=== PATIENT | female | born 1985 | race Caucasian/White ===

== ENCOUNTER 2017-03-12 11:07 | Emergency (ER) | payer OTHER ==
[~2017-03-12] VITALS: Ht 154.9 cm; Wt 68.2 kg
[~2017-03-12 11:07] MED LIST: ALBU8.5H4 IH; DXM4T PO; Hydrocodone/Acetaminophen PO; IBUP-1827 PO; Ibuprofen PO; PREN1TAB73 PO
[2017-03-12 11:10] VITALS: BP 122/78; PULSE 83; RESP 16; O2SAT 100
--- NOTE | 2017-03-12 11:16 | ED.REPORT ---
HPI-Abd Pain F Under 40 Date of Service Mar 12, 2017 ED Provider: Baron Jin MD A 31 year old male with a history of tubal ligation, asthma and GERD presents to the ED complaining of abdominal pain. This began suddenly last night and has persisted since. The pain is located in the LLQ radiating to her back. This has been accompanied by nausea and vomiting x1 this morning, though the pt denies fever, dysuria, vaginal bleeding, vaginal discharge or diarrhea. The pt denies any history of kidney stones. She experienced similar symptoms five years ago with an ovarian cyst. Nursing Notes Stated Complaint: ABDOMINAL PAIN/ BLURRED VISION Chief Complaint: Female Abdominal Pain Nursing Notes Reviewed: Yes Allergies: Coded Allergies: Penicillins (Verified Allergy, Unknown, 03/12/17) Scheduled Dexamethasone (Dexamethasone) 4 Mg Tablet 4 MG PO BID Vit/Iron Fumarate/FA ( Vitamin Tablet) 1 Each Tablet 1 EACH PO DAILY Scheduled PRN ([Ibuprofen]) 600 MG TABLET 600 MG PO Q6H PRN PRN For Mild Pain ([Hydrocodone/Acetaminophen]) 1 TAB TABLET 1-2 TAB PO Q4H PRN PRN For Pain Albuterol HFA (Albuterol HFA) 8.5 Gm Hfa.aer.ad 1 PUFF IH Q4 PRN PRN For Shortness of Breath Hydrocodone-Acetaminophen 5-325 mg (Hydrocodone-Acetaminophen 5-325 mg) 1 Each Tablet 1 TABLET PO Q4H PRN PRN For Pain Ibuprofen (Ibuprofen) 600 Mg Tablet 600 MG PO QID PRN PRN For Pain General Time Seen by MD: 11:13 Chief Complaint Abdominal pain Hx Obtained From: Patient Arrived By: Walk-in Sudden in Onset?: Yes Onset Occurred: 1 day ago Symptom Duration: Since onset Recent Healthcare: No recent doctor visit, No recent hospitalization Similar Sx Previous: No Past Medical History Past Medical History scoliosis Reports: Asthma, GERD Past Surgical History pectus excavatum Reports: Tubal ligation Smoking History Former Smoker Social History Other Social History: Good social support, , Lives with children, Local resident Ambulatory Status Independent Review of Systems Constitutional: Denies: Fever Respiratory: Denies: Non-productive cough, Shortness of breath Cardiovascular: Denies: Chest pain GI: Reports: Abdominal pain, Nausea, Vomiting, Denies: Diarrhea Female: Denies: Dysuria Musculoskeletal: Reports: Back pain, Denies: Neck pain Complete sys rev & neg: except as marked. Skin: Denies Rash Physical Exam Initial Vital Signs Vital Signs (First) Date Time Temp Pulse Resp B/P Pulse Ox O2 Delivery O2 Flow Rate FiO2 03/12/17 11:10 36.7 83 16 122/78 100 Room Air Initial VS: Reviewed General/Constitutional: Awake, Alert Respiratory / Chest: Atraumatic, Breath sounds NL, Breath sounds = bilat, No respiratory distress Cardiovascular: Heart rate NL, Regular rhythm, Heart sounds NL Abdomen: Atraumatic, Soft LLQ tenderness Back: Atraumatic, Full range of motion, No CVA tenderness Head / Eyes: Atraumatic, Normocephalic, PERRL, EOMI ENT: Atraumatic, Airway patent, Mucous membranes moist Skin: Atraumatic, Color NL, No rash, Warm, Dry Female Genitourinary: Overhead Foreman present, Atraumatic, No cervical motion tend mild left adnexal tenderness small amount of white discharge Neurologic: Oriented X3, Speech NL, No motor deficits, No sensory deficits Neck: Atraumatic, Supple, Full range of motion Upper Extremity / MS: Atraumatic, Full range of motion Lower Extremity / Pelvis / MS: Atraumatic, Full range of motion Psychiatric: Affect NL, Mood NL Interpretation & Diagnostics Lab Results Interpretation Result Diagram: 03/12/17 1125 03/12/17 1125 Test 03/12/17 11:25 03/12/17 12:45 White Blood Count 8.5th/mm3 (3.8-10.1) Red Blood Count 5.23mil/mm3 (3.90-5.20) Hemoglobin 15.4g/dL (12.0-15.6) Hematocrit 44.0% (35.0-46.0) Mean Corpuscular Volume 84.1fL (81-100) Mean Corpuscular Hemoglobin 29.4pg (27.0-35.0) Mean Corpuscular Hemoglobin Concent 35.0% (32.0-37.0) Red Cell Distribution Width 12.6% (12.3-15.4) Platelet Count 320bil/L (150-400) Neutrophils (%) (Auto) 58.1% (40-74) Lymphocytes (%) (Auto) 30.1% (14-46) Monocytes (%) (Auto) 7.5% (4-12) Eosinophils (%) (Auto) 3.3% (0-5) Basophils (%) (Auto) 0.6% (0-3) Sodium Level 136mEq/L (134-144) Potassium Level 4.4mEq/L (3.5-5.2) Chloride Level 101mEq/L (97-108) Carbon Dioxide Level 19mmol/L (18-29) Blood Urea Nitrogen 8mg/dL (6-20) Creatinine 0.75mg/dL (0.57-1.00) Estimat Glomerular Filtration Rate 130mL/min (>59) Glucose Level 90mg/dL (60-99) Calcium Level 9.2mg/dL (8.5-10.1) Magnesium Level 2.0mg/dL (1.6-2.6) Total Bilirubin 0.4mg/dL (0.0-1.2) Aspartate Amino Transf (AST/SGOT) 27U/L (0-50) Alanine Aminotransferase (ALT/SGPT) 15U/L (0-32) Alkaline Phosphatase 81U/L (25-150) Total Protein 7.5g/dL (6.4-8.4) Albumin 4.2g/dL (3.4-5.0) Lipase 14U/L (13-60) Urine Color Dark yellow (YELLOW) Urine Appearance Hazy (CLEAR,HAZY) Urine pH 8.0 (5.0-8.0) Urine Specific [place] 1.038 (1.003-1.035) Urine Protein 30mg/dL (NEG,TRACE) Urine Glucose (UA) Negativemg/dL (NEGATIVE) Urine Ketones Negativemg/dL (NEGATIVE) Urine Occult Blood Negative (NEGATIVE) Urine Nitrite Negative (NEGATIVE) Urine Bilirubin Negative (NEGATIVE) Urine Urobilinogen Normalmg/dL (NORMAL) Urine Leukocyte Esterase Negative (NEGATIVE) Urine RBC 0-2/hpf (0-2) Urine WBC 0-5/hpf (0-5) Urine Epithelial Cells Many/hpf (NONE-MOD) Urine Crystals None seen (NONE SEEN) Urine Bacteria Few/hpf (NONE-FEW) Urine Hyaline Casts None/lpf (NONE) Urine Granular Casts None seen (NONE SEEN) Urine Waxy Casts None seen (NONE SEEN) Urine Red Blood Cell Casts None seen (NONE SEEN) Urine White Blood Cell Casts None seen (NONE SEEN) Urine Mucus None seen (None Seen) Urine Trichomonas None seen (NONE SEEN) Urine Yeast None (NONE SEEN) Urinalysis Comment None Urine Culture Reflexed Not indicated CT Abd / Pelvis Interpretation IMPRESSION: 1. No acute process. 2. Normal appendix. Dictated by: Adelina Minor M.D. on 03/12/2017 at 13:27 Approved by: Adelina Minor M.D. on 03/12/2017 at 13:29 Interpretation / Wet Read by: Interpret - Radiologist Re-Eval/Medical Decision Med Decision/Clinical Course Med Decision/Clinical Course: 31-year-old female history of ovarian cysts and tubal ligation presenting with left lower quadrant pain since last night. On exam mild left lower quadrant tenderness and left adnexal tenderness. She has mild white discharge. Her labs are unremarkable. Her vital signs are stable. CT scan shows no acute pathology. She is not . There is no evidence of UTI. Possible ovarian cyst. She does not desire . Her pain resolved and her time in the ER. Her vaginal discharge was sent for wet mount and GC chlamydia. She will be discharged home with follow-up with her primary doctor tomorrow. Return precautions given. Source of Hx: Old records Re-Evaluation/Progress #1: Time of Eval: 12:51 Re-Evaluation/Progress Note: Pt rechecked, who is feeling slightly better after receiving medications. The plan for further treatment is discussed. Re-Evaluation/Progress #2: Time of Eval: 14:47 Patient Status: Condition improved Re-Evaluation/Progress Note: Pt rechecked, who is comfortable. The diagnosis and plan for discharge are discussed. The pt understands and agrees with the plan. All questions are addressed at this time. Counseled Regarding: Diagnosis, Lab results, Need for follow-up, When/why to return to ED Discharge & Departure Primary Impression: Abdominal pain Abdominal location: unspecified location Qualified Code: R10.9 - Unspecified abdominal pain Additional Impression: Ovarian cyst Laterality: unspecified laterality Qualified Code: N83.209 - Unspecified ovarian cyst, unspecified side Disposition: Home Discharge Condition All VS Reviewed: Yes Condition: Stable Patient Instructions: Acute Abdominal Pain (ED), Ovarian Cyst (ED) Additional Instructions: Thank you for entrusting us with your care. Your evaluation was reassuring. Take one [place] every six hours as needed for severe pain. Do not drink, drive or consume acetaminophen while taking the [place]. We are sending your pelvic fluid for testing and will call if there is any indication for antibiotics. Call your primary care physician to arrange a follow up appointment tomorrow for further evaluation. Return to the emergency department if you develop any new or worsening symptoms including worsening abdominal pain, nausea, vomiting, vaginal discharge/bleeding, or flank pain. Referrals: Bravo Oakley MD (PCP) Scribe Attestation Portions of this note were transcribed by Ramon Khan. I, Dr. Jin personally performed the history, physical exam and medical decision-making; I reviewed and confirmed the accuracy of the information in the transcribed note. copies to: Bravo Oakley MD, Ben M MD Mar 12, 2017 11:16 RAMON KHAN Mar 12, 2017 11:37
[2017-03-12] MEDS ORDERED: 0.9% Sodium Chloride 1,000 ML IV ONE (11:31)
[2017-03-12] MEDS ORDERED: Ondansetron 2 mg/mL 2 mL Inj IVPUSH PRN (11:35)
[2017-03-12 11:51] LABS: BASOPHILS % (AUTO) 0.6 % (0-3); EOSINOPHILS % (AUTO) 3.3 % (0-5); MONOCYTES % (AUTO) 7.5 % (4-12); Mean Corpuscular Hemoglobin 29.4 pg (27.0-35.0); Mean Corpuscular Volume 84.1 fL (81-100); NEUTROPHILS % (AUTO) 58.1 % (40-74); Platelet Count 320 bil/L (150-400)
--- NOTE | 2017-03-12 13:30 | DRSVH ---
PROCEDURE: CT ABDOMEN AND PELVIS WITH CONTRAST ([id number]) INDICATIONS: LLQ pain TECHNIQUE: After the administration of intravenous contrast, 5 mm thick sections acquired from the diaphragm to the symphysis. 5 mm coronal and sagittal reformats were acquired. For radiation dose reduction, the following was used: automated exposure control, adjustment of mA and/or kV according to patient siz e. COMPARISON: None. FINDINGS: Image quality: Excellent. ABDOMEN: Lung bases: Lung bases are clear. Heart size is normal. Solid organs: Liver and spleen are normal in size and enhancement. Gallbladder is within normal phillips its. Biliary system is non dilated. Pancreas enhances normally. Pancreas divisum appears to be pre sent. No adrenal nodules. Kidneys demonstrate normal size and enhancement, without hydronephrosis. Peritoneum and bowel: Bowel loops demonstrate normal wall thickness and caliber. No free fluid or a ir. Normal appendix. Nodes and vessels: No retroperitoneal or mesenteric adenopathy by size criteria. Aorta and inferior vena cava are normal in size. Miscellaneous: No ventral hernias. PELVIS: Genitourinary: Urinary bladder is decompressed. Miscellaneous: No inguinal hernias or adenopathy. Bones: No suspicious bony lesions. No vertebral body compression fractures. IMPRESSION: 1. No acute process. 2. Normal appendix. Dictated by: Adelina Minor M.D. on 03/12/2017 at 13:27 Approved by: Adelina Minor M.D. on 03/12/2017 at 13:29
[2017-03-12 13:31] LABS: APPEARANCE,URINE HAZY (CLEAR,HAZY); COLOR,URINE DARK YELLOW (YELLOW); OCCULT BLOOD,URINE NEGATIVE (NEGATIVE); UROBILINOGEN,URINE NORMAL (NORMAL)
[2017-03-12 13:43] VITALS: BP 119/60; RESP 18; O2SAT 99
[2017-03-12] MEDS ORDERED: HYDR-4003 PO (14:58)
[2017-03-12 15:11] VITALS: BP 117/55; PULSE 82; RESP 16; O2SAT 99
[2017-03-12] MEDS ORDERED: HYDROcodone-APAP 5-325 mg Tablet PO ONE (15:20)
== END 2017-03-12 15:20 | disposition home or self-care (01) ==
LOC: SED 11:07
DX: N83.209 Unspecified ovarian cyst, unspecified side (principal); R10.32 Left lower quadrant pain; R11.2 Nausea with vomiting, unspecified; J45.909 Unspecified asthma, uncomplicated; K21.9 Gastro-esophageal reflux disease without esophagitis; Z98.890 Other specified postprocedural states; Z87.891 Personal history of nicotine dependence; Z88.0 Allergy status to penicillin
CPT/HCPCS: 36415; 74177; 80053; 81000; 81025; 83690; 83735; 85025; 87210; 87491; 87591; 96361; 96374; 96375; 96376; 99285; J1885; J2270; J2405; J7030; Q9967